=== PATIENT | female | born 1935 | race Caucasian/White ===

== ENCOUNTER → 2021-01-14 | Outpatient (CLI) | payer MEDICARE ==
--- NOTE | 2021-01-14 11:11 | Diagnostic Imaging Report ---
INDICATION: Fall with left knee pain. EXAMINATION: Left knee, 3 views. 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 No evidence of hardware loosening. There are no bony fractures. IMPRESSION: TKA with no acute abnormalities noted. Dictated by: Dictated on workstation # [id number]
--- NOTE | 2021-01-14 11:12 | Diagnostic Imaging Report ---
INDICATION: History of left ankle fracture. COMPARISON: No previous films for comparison. FINDINGS: There is a minimally displaced oblique fracture through the distal fibular shaft. The ankle mortise appears in good alignment. The articulating surface of the talus is smooth. The medial malleolus is intact. No significant callus formation is demonstrated about the fracture. There is some soft tissue swelling. IMPRESSION: Minimally displaced oblique fracture of the distal shaft of the left fibula. No significant bony callus is noted at this time. Dictated by: Dictated on workstation # [id number]
== END ==
LOC: RAD FS 10:15
PROVIDERS: ATTEND Nurse Practitioner
DX: S82.62XA Displaced fracture of lateral malleolus of left fibula, initial encounter for closed fracture (principal); M25.562 Pain in left knee; Z96.652 Presence of left artificial knee joint; X58.XXXA Exposure to other specified factors, initial encounter
CPT/HCPCS: 73562; 73610

== ENCOUNTER → 2021-03-07 | Outpatient (CLI) | payer MEDICARE ==
--- NOTE | 2021-03-07 10:20 | Diagnostic Imaging Report ---
INDICATION: Follow-up left ankle fracture. TIME OF EXAM: 10:05 AM Correlation is made with prior ankle radiograph from 01/14/2021. 3 views left ankle again demonstrate an obliquely oriented fracture through the distal fibula. No significant displacement or angulation is seen. Ankle mortise is well maintained. Talar dome is smooth. IMPRESSION: Obliquely oriented distal fibular fracture. Fracture lines remain clearly visible without significant callus formation. Overall alignment is anatomic. Dictated by: Dictated on workstation # [id number]
--- NOTE | 2021-03-07 10:27 | Diagnostic Imaging Report ---
INDICATION: Left knee pain. TIME OF EXAM: 10:02 AM Correlation is made with prior radiograph from 01/14/2021. There are postop changes of total knee arthroplasty. The prosthetic elements are in good position. No fracture or loosening is identified. No joint effusion. IMPRESSION: Stable postoperative appearance of the left knee when compared to examination 2 months earlier. Dictated by: Dictated on workstation # [id number]
== END ==
LOC: RAD FS 09:47
PROVIDERS: ATTEND Nurse Practitioner
DX: S82.62XD Displaced fracture of lateral malleolus of left fibula, subsequent encounter for closed fracture with routine healing (principal); Z98.890 Other specified postprocedural states; X58.XXXD Exposure to other specified factors, subsequent encounter
CPT/HCPCS: 73562; 73610